=== PATIENT | female | born 1960 | race Caucasian/White ===

== ENCOUNTER 2016-10-05 08:31 | Day surgery (SDC) | payer OTHER ==
[~2016-10-05 08:31] MED LIST: BUPIVACAINE 0.5% W/EPI SDV 30 ML VIAL ONE; CEFAZOLIN SODIUM 1,000 MG VIAL ONE; CEFAZOLIN SODIUM 2 GRAM PREMIX 100 ML IV PRN; FENTANYL 100 MCG/2 ML VIAL ONE; IV START KIT ONE; LACTATED RINGERS 1,000 ML ONE; LIDOCAINE 2% (MULTI DOSE) 10 ML VIAL ONE; MIDAZOLAM HCL 1 MG/ML 2ML VIAL ONE; PROPOFOL 20 ML IV ONE; ROCURONIUM BROMIDE 10 MG/ML DOSE IV ONE; SODIUM CHLORIDE 0.9% FLUSH 10 ML ONE
[2016-10-05] MEDS ORDERED: CEFAZOLIN SODIUM 2 GRAM PREMIX 100 ML IV ONE (08:44)
[2016-10-05] MEDS ORDERED: FENTANYL 100 MCG/2 ML VIAL ONE ×2 (10:20→11:52)
[2016-10-05] MEDS ORDERED: BACITRACIN 1 APPLIC/500 UNIT PACKET TP ONE (10:20)
[2016-10-05] MEDS ORDERED: ONDANSETRON 4 MG/2ML 2 ML VIAL ONE (10:50)
[2016-10-05] MEDS ORDERED: DEXAMETHASONE SOD PHOS 4 MG/1 ML VIAL ONE (10:50)
[2016-10-05] MEDS ORDERED: NEOSTIGMINE METHYLSULFATE 1 MG/ML DOSE ONE ×3 (10:53→10:54)
[2016-10-05] MEDS ORDERED: GLYCOPYRROLATE 0.2 MG/ML 1ML VIAL ONE ×2 (10:54)
[2016-10-05] MEDS ORDERED: HYDROMORPHONE HCL 1 MG/ML SYRINGE IV PRN (12:07)
[2016-10-05] MEDS ORDERED: NALOXONE HCL 0.4 MG/ML VIAL IV PRN (12:07)
[2016-10-05] MEDS ORDERED: KETOROLAC TROMETHAMINE 30 MG/ML 1 ML VIAL IV ONE (12:07)
[2016-10-05] MEDS ORDERED: ONDANSETRON 4 MG/2ML 2 ML VIAL IV PRN ×2 (12:07→12:33)
[2016-10-05] MEDS ORDERED: ATROPINE SULFATE 0.4 MG/1 ML VIAL IV PRN (12:07)
[2016-10-05] MEDS ORDERED: FENTANYL 100 MCG/2 ML VIAL IV PRN (12:07)
[2016-10-05] MEDS ORDERED: PROMETHAZINE HCL 25 MG SUP PR PRN (12:07)
[2016-10-05] MEDS ORDERED: LACTATED RINGERS 1,000 ML IV SCH (12:15)
[2016-10-05] MEDS ORDERED: KETOROLAC TROMETHAMINE 30 MG/ML 1 ML VIAL ONE (12:23)
[2016-10-05] MEDS ORDERED: KETOROLAC TROMETHAMINE 30 MG/ML 1 ML VIAL IV PRN (12:33)
[2016-10-05] MEDS ORDERED: OXYCODONE HCL 5 MG TABLET PO PRN (12:33)
[2016-10-05] MEDS ORDERED: MORPHINE SULFATE 2 MG/ML SYRINGE IV PRN (12:33)
[2016-10-05] MEDS ORDERED: OXYCODONE HCL 5 MG TABLET ONE (13:01)
--- NOTE | 2016-10-06 11:28 | OP ---
Trice Bee [id number] DATE: 10/05/2016 PREOPERATIVE DIAGNOSIS: Incisional hernia. POSTOPERATIVE DIAGNOSES: Incisional hernia, intraabdominal adhesions. PROCEDURE: Laparoscopic incisional hernia repair with Parietex mesh, adhesiolysis. SURGEON: Anders Haney M.D. RATE SETTER: Jessica Song. ANESTHESIA: Nadir, General endotracheal. INDICATION: This is a 56-year-old female who has palpable tender area below and to the right of her umbilical incision. She has also had C-sections and hysterectomy. A CT scan documents an incisional hernia. DESCRIPTION: She was taken to the operating room where she was laid supine on the operating room table. General endotracheal anesthetic was administered. The abdomen was prepped and draped in a sterile fashion. I did use an Ioban. Local anesthetic was administered in the left subcostal region. A small stab incision was made. A Varess needle was placed into the abdominal cavity, this was confirmed with saline drop. A pneumoperitoneum was created. Local anesthetic was administered inferior and lateral to this. Incision was made. A 12 mm optical port was used to enter the abdomen under direct visualization. Once within the abdomen there was no evidence of port placement injury. There was no evidence of Varess needle injury. The Varess needle was removed. There were adhesions at the anterior abdominal wall. Under direct visualization I was able to localize ports in the right upper quadrant and also the left lower quadrant. I then took down the adhesions using the Ligasure and gentle traction. This extended down into the pelvis on both sides of the abdomen. Eventually we were able to identify the hernia defect. There was omentum within. With pressure from outside the abdomen and traction from within I was able to remove some omentum from the hernia defect. The hernia defect itself was actually quite small. We desufflated the abdomen and marked on the skin how we would repair the defect. I chose a piece of Parietex mesh and cut it down to approximately an 8 x 8 cm patch. Sutures of Vicryl were placed at two of the corners and also on the lateral edges. I was going to allow some of the mesh to fall down and cover the upper part of the pelvic abdominal wall. The mesh was rolled up. The abdomen was reinflated and the mesh was brought through the left upper port site. It was unrolled. Small stab incisions were made on the abdominal wall. Using a [employer] suture passer sutures were pulled up through the abdominal wall. We appeared to have the appropriate level of tension at the suture sites. The sutures were tied down. The remains parts of the mesh were tacked to the anterior abdominal wall using an AbsorbaTack. Using a spinal needle I could localize the hernia defect and it was in the mid portion of the mesh in all four dimensions. The left upper quadrant port site was closed with the suture passer using 0 Vicryl. The other fascial defects were small. The ports were removed and the pneumoperitoneum were evacuated. All port wounds were irrigated and closed with subcuticular 4-0 Monocryl. Steri-Strips were placed. Band aids were applied. A binder was applied. She tolerated the procedure and was taken to the recovery room in stable condition. Note was made that needle, instrument, and lap counts were reported as correct at the time of closure. JOB: [id number] CC: Dr. Jose Luis Song
== END 2016-10-05 13:40 | disposition home or self-care (01) ==
LOC: SDC 08:31
PROVIDERS: ATTEND Surgery
PROC: 0WUF4JZ Supplement Abdominal Wall with Synthetic Substitute, Percutaneous Endoscopic Approach (ICD-10-PCS; principal; 2016-10-05)
DX: K43.2 Incisional hernia without obstruction or gangrene (principal); I10 Essential (primary) hypertension; E11.9 Type 2 diabetes mellitus without complications; E03.9 Hypothyroidism, unspecified; E78.5 Hyperlipidemia, unspecified; F41.9 Anxiety disorder, unspecified; K51.90 Ulcerative colitis, unspecified, without complications; E07.9 Disorder of thyroid, unspecified; K57.30 Diverticulosis of large intestine without perforation or abscess without bleeding; F42.9 Obsessive-compulsive disorder, unspecified; Z79.84 Long term (current) use of oral hypoglycemic drugs; Z88.2 Allergy status to sulfonamides
CPT/HCPCS: 49654; J0690 ×2; J3010 ×3; J1100; A9270 ×2; J1885; J2250; J2405; J7120; J2001